=== PATIENT | male | born 1980 | race Caucasian/White ===

== ENCOUNTER 2017-01-12 14:57 | Emergency (ER) | payer SELFPAY ==
[~2017-01-12] VITALS: Ht 170.2 cm; Wt 98.0 kg
[~2017-01-12 14:57] MED LIST: ACET2SOL RIGHT EAR; ASPI325T PO; CIPR500T4 PO; HYDR-3533 PO; PRED20 PO
[2017-01-12 15:00] VITALS: BP 144/106; PULSE 106; RESP 15; TEMP 98.5; O2SAT 97
[2017-01-12] MEDS ORDERED: ASPI1TAB69 PO (15:24)
--- NOTE | 2017-01-12 16:11 | PD ---
HPI Chief Complaint: Skin Problem Time Seen by Provider: 16:11 Travel History International Travel<30 days: No Contact w/Intl Traveler<30days: No Traveled to known affect area: No History of Present Illness HPI 36-year-old male presents to the ED for evaluation for a history of bruising and rash of the left knee. Patient states he woke up 4 days ago and had a deep purple bruise over the anterior aspect of the left knee. He states that over the last 3 days this has become a reddened, mildly itchy rash. He denies trauma to the area, known insect bite. He denies numbness, tingling, weakness, limitations to range of motion of the extremity. He denies fever or chills. No treatment attempted at home. Patient states his tetanus immunization is up- to-date PFSH Past Medical History Anxiety: Yes Cardiovascular Problems: Yes (ME WITH STENT PLACED) Chest Pain: Yes Coronary Artery Disease: Yes Diminished Hearing: No Headaches: Yes Hypertension: Yes Respiratory: Yes (HX PNEUMONIA) Immunizations Current: No Myocardial Infarction: Yes ?: Not Past Surgical History Abdominal Surgery: Yes (Pyloric stenosis repair as child, HERNIORRHAPHY) Coronary Stent: Yes Other Surgery: Yes (Plastic sx to face S/P dog bite & hand SX) Social History Alcohol Use: Yes (Occ.) Tobacco Use: Yes (<1PPD) Substance Use: Yes (Amphetamines "off and on" ) Allergies-Medications (Allergen,Severity, Reaction): Coded Allergies: Codeine (Verified Allergy, Severe, Hives, 01/12/17) [place] (Verified Allergy, Severe, HIVES, 01/12/17) Reported Meds & Prescriptions Reported Meds & Active Scripts Active Triamcinolone Topical (Triamcinolone Acetonide) 0.1% Cream 1 Applic TOPICAL ONCE 10 Days Keflex (Cephalexin) 250 Mg Cap 250 Mg PO Q6H 10 Days Bactrim DS (Sulfamethoxazole-Trimethoprim) 800-160 Mg Tab 1 Tab PO BID Reported Aspirin 81 Mg Tabdr 81 Mg PO DAILY Review of Systems Except as stated in HPI: all other systems reviewed are Neg Physical Exam Narrative GENERAL: Well-nourished, well-developed white male in no acute distress. SKIN: Warm and dry. There is a scattered, patchy, erythematous rash on the anterior aspect of the left tibia, just distal to the knee joint. No pustules, vesicles, crusts are noted. No warmth, tenderness. No popliteal lymphadenopathy. HEAD: Normocephalic. EYES: No scleral icterus. No injection or drainage. NECK: Supple, trachea midline. No JVD or lymphadenopathy. CARDIOVASCULAR: Regular rate and rhythm without murmurs, gallops, or rubs. RESPIRATORY: Breath sounds equal bilaterally. No accessory muscle use. GASTROINTESTINAL: Abdomen soft, non-tender, nondistended. MUSCULOSKELETAL: No cyanosis, or edema. BACK: Nontender without obvious deformity. No CVA tenderness. Data Data Last Documented VS Vital Signs Date Time Temp Pulse Resp B/P Pulse Ox O2 Delivery O2 Flow Rate FiO2 01/12/17 15:00 98.5 106 15 144/106 97 MDM Medical Decision Making Medical Screen Exam Complete: Yes Emergency Medical Condition: Yes Differential Diagnosis Contact dermatitis versus psoriasis versus erythema nodosum versus cellulitis versus other Narrative Course 36-year-old male presents to the ED for evaluation for a history of bruising and rash of the left knee. Patient states he woke up 4 days ago and had a deep purple bruise over the anterior aspect of the left knee. He states that over the last 3 days this has become a reddened, mildly itchy rash. He denies trauma to the area, known insect bite. He denies numbness, tingling, weakness, limitations to range of motion of the extremity. He denies fever or chills. No treatment attempted at home. Patient states his tetanus immunization is up- to-date. Vitals reviewed. Physical exam reveals a patchy, erythematous rash with a central clearing on the anterior aspect of the left tibia, just distal to the knee joint. No pustules, vesicles, crusts are noted. No warmth, tenderness. No popliteal lymphadenopathy. No limitations to ROM. Unsure if this is a skin infection or a contact dermatitis of some sort. Patient was prescribed Bactrim and Keflex as well as triamcinolone ointment. He is instructed to return to the ED in 24-48 hours should his symptoms worsen. Otherwise follow up with the primary care provider. He indicated understanding of the instructions and is amenable to plan of care. Stable and discharged home. Diagnosis Primary Impression: Rash/skin eruption Referrals: Primary Care Physician Patient Instructions: Acute Rash (ED), General Instructions Additional Instructions: Keep the area clean and dry. Applied topical cortisone steroids to 4 times a day 10 days. Antibiotics as prescribed, even if symptoms resolve. Follow up with the primary care provider this week. Return to the ED for worsening of symptoms or any urgent or emergent medical condition. Med/Other Pt SpecificInfo: Prescription(s) given Scripts Triamcinolone Topical 0.1% Cream1 Applic TOPICAL ONCE 10 Days Ref 0 Prov:Etsher Myers MD 01/12/17 Cephalexin (Keflex)250 Mg [id number] Mg PO Q6H 10 Days Ref 0 Prov:Esther Myers MD 01/12/17 Sulfamethoxazole-Trimethoprim (Bactrim DS)800-160 Mg Tab1 Tab PO BID #14 TAB Ref 0 Prov:Esther Myers MD 01/12/17 Disposition: 01 DISCHARGE HOME Condition: Stable Zonia Valencia Jan 12, 2017 16:11
[2017-01-12] MEDS ORDERED: CEPH-459 PO (16:28)
[2017-01-12] MEDS ORDERED: TRIA.1%T TOPICAL (16:28)
[2017-01-12] MEDS ORDERED: BACT800T5 PO (16:28)
== END 2017-01-12 16:48 | disposition home or self-care (01) ==
LOC: PHEFT 14:57
DX: R21 Rash and other nonspecific skin eruption (principal); I10 Essential (primary) hypertension; F41.9 Anxiety disorder, unspecified; Z79.82 Long term (current) use of aspirin; Z95.818 Presence of other cardiac implants and grafts
CPT/HCPCS: 99282

== ENCOUNTER 2017-05-20 21:15 | Emergency (ER) | payer SELFPAY ==
[2017-05-20 21:15] VITALS: BP 166/100; PULSE 114; RESP 18; TEMP 99; O2SAT 98
[~2017-05-20 21:15] MED LIST changes: -ACET2SOL RIGHT EAR; +ASPI1TAB69 PO; -ASPI325T PO; +BACT800T5 PO; +CEPH-459 PO; -CIPR500T4 PO; -HYDR-3533 PO; -PRED20 PO; +TRIA.1%T TOPICAL
[2017-05-20 21:17] VITALS: BP 166/100; PULSE 114; RESP 18; O2SAT 97
[2017-05-20] MEDS ORDERED: SODIUM CHLORIDE 0.9% FLUSH 10 ML FLUSH IVF PRN (21:45)
[2017-05-20] MEDS ORDERED: ALUMINUM/MAGNESIUM/SIMETH 30 ML CUP PO ONE (21:45)
[2017-05-20] MEDS ORDERED: LIDOCAINE VISCOUS 2% SOLN 15 ML UDC PO ONE (21:45)
[2017-05-20] MEDS ORDERED: SODIUM CHLOR 0.9% 1000 ML INJ 1,000 ML IV ONE (21:45)
[2017-05-20] MEDS: NITROGLYCERIN 0.4 MG SL 25 TABS/BTL SL SCH ×3 (21:48→21:56)
--- NOTE | 2017-05-20 21:48 | PD ---
HPI Chief Complaint: Chest Pain Time Seen by Provider: 21:25 Travel History International Travel<30 days: No Contact w/Intl Traveler<30days: No History of Present Illness HPI 36-year-old male with a history of coronary artery disease 5 years ago evidently with a 100% LAD occlusion arrives due to chest pain. He has tingling in the hand on the left side. Symptoms started as anterior neck pain which started when the patient inhaled a cigarette. He had been working on his car. It began about 5 hours ago. He denies a history of diabetes, hypertension hyperlipidemia. He smokes tobacco. He reports 2 grandparents with coronary artery disease. PFSH Past Medical History Anxiety: Yes Cardiovascular Problems: Yes (GA WITH STENT PLACED) Chest Pain: Yes Coronary Artery Disease: Yes Diminished Hearing: No Headaches: Yes Hypertension: Yes Respiratory: Yes (HX PNEUMONIA) Immunizations Current: No Myocardial Infarction: Yes Past Surgical History Abdominal Surgery: Yes (Pyloric stenosis repair as child, HERNIORRHAPHY) Coronary Stent: Yes Other Surgery: Yes (Plastic sx to face S/P dog bite & hand SX) Social History Alcohol Use: Yes (Occ.) Tobacco Use: Yes (<1PPD) Substance Use: Yes (Amphetamines "off and on" ) Allergies-Medications (Allergen,Severity, Reaction): Coded Allergies: Codeine (Verified Allergy, Severe, Hives, 01/12/17) [place] (Verified Allergy, Severe, HIVES, 01/12/17) Reported Meds & Prescriptions Reported Meds & Active Scripts Active Reported Aspirin 325 Mg Tab 325 Mg PO DAILY Review of Systems Except as stated in HPI: all other systems reviewed are Neg General / Constitutional: No: Fever, Chills Cardiovascular: Positive: Chest Pain or Discomfort, Palpitations Respiratory: No: Cough Physical Exam Narrative GENERAL: 36-year-old male well-nourished well-developed no acute distress SKIN: Focused skin assessment warm/dry. HEAD: Atraumatic. Normocephalic. EYES: Pupils equal and round. No scleral icterus. No injection or drainage. ENT: No nasal bleeding or discharge. Mucous membranes pink and moist. NECK: Trachea midline. No JVD. CARDIOVASCULAR: Tachycardia. Regular rhythm. RESPIRATORY: No accessory muscle use. Clear to auscultation. Breath sounds equal bilaterally. GASTROINTESTINAL: Abdomen soft, non-tender, nondistended. Hepatic and splenic margins not palpable. MUSCULOSKELETAL: No obvious deformities. No clubbing. No cyanosis. No edema. NEUROLOGICAL: Awake and alert. No obvious cranial nerve deficits. Motor grossly within normal limits. Normal speech. PSYCHIATRIC: Appropriate mood and affect; insight and judgment normal. Data Data Last Documented VS Vital Signs Date Time Temp Pulse Resp B/P Pulse Ox O2 Delivery O2 Flow Rate FiO2 05/20/17 23:40 95 18 129/88 97 Room Air 05/20/17 21:15 99.0 Orders Electrocardiogram (05/20/17 21:33) Basic Metabolic Panel (Bmp) (05/20/17 21:33) Ckmb (Isoenzyme) Profile (05/20/17 21:33) Complete Blood Count With Diff (05/20/17 21:) D-Dimer (05/20/17 21:33) Magnesium (Mg) (05/20/17 21:33) Prothrombin Time / Inr (Pt) (05/20/17 21:33) Act Partial Throm Time (Ptt) (05/20/17 21:33) Troponin I (05/20/17 21:33) Chest, Single Ap (05/20/17 21:33) Ecg Monitoring (05/20/17 21:33) Iv Access Insert/Monitor (05/20/17 21:33) Oximetry (05/20/17 21:33) Oxygen Administration (05/20/17 21:33) Sodium Chloride 0.9% Flush (Ns Flush) (05/20/17 21:45) Nitroglycerin Sl (Nitrostat Sl) (05/20/17 21:45) Al-Mag Hy-Si 40-40-4 Mg/Ml Liq (Mag-Al P (05/20/17 21:45) Lidocaine 2% Viscous (Xylocaine 2% Visco (05/20/17 21:45) Sodium Chlor 0.9% 1000 Ml Inj (Ns 1000 M (05/20/17 21:45) CKMB (05/20/17 21:25) CKMB% (05/20/17 21:25) Lorazepam Inj (Ativan Inj) (05/20/17 22:30) Troponin I (05/20/17 23:33) Electrocardiogram (05/20/17 ) Labs Laboratory Tests Test 05/20/17 05/20/17 21:25 23:30 White Blood Count 14.6 TH/MM3 Red Blood Count 5.32 MIL/MM3 Hemoglobin 16.1 GM/DL Hematocrit 48.8 % Mean Corpuscular Volume 91.7 FL Mean Corpuscular Hemoglobin 30.2 PG Mean Corpuscular Hemoglobin 33.0 % Concent Red Cell Distribution Width 13.4 % Platelet Count 427 TH/MM3 Mean Platelet Volume 7.9 FL Neutrophils (%) (Auto) 67.1 % Lymphocytes (%) (Auto) 24.5 % Monocytes (%) (Auto) 7.2 % Eosinophils (%) (Auto) 0.4 % Basophils (%) (Auto) 0.8 % Neutrophils # (Auto) 9.7 TH/MM3 Lymphocytes # (Auto) 3.6 TH/MM3 Monocytes # (Auto) 1.1 TH/MM3 Eosinophils # (Auto) 0.1 TH/MM3 Basophils # (Auto) 0.1 TH/MM3 CBC Comment DIFF FINAL Differential Comment Prothrombin Time 10.7 SEC Prothromb Time International 1.0 RATIO Ratio Activated Partial 27.7 SEC Thromboplast Time D-Dimer Quantitative (PE/DVT) 0.30 MG/L FEU Sodium Level 142 MEQ/L Potassium Level 3.4 MEQ/L Chloride Level 105 MEQ/L Carbon Dioxide Level 28.7 MEQ/L Anion Gap 8 MEQ/L Blood Urea Nitrogen 16 MG/DL Creatinine 1.20 MG/DL Estimat Glomerular Filtration 69 ML/MIN Rate Random Glucose 137 MG/DL Calcium Level 9.5 MG/DL Magnesium Level 2.1 MG/DL Total Creatine Kinase 107 U/L Creatine Kinase MB 1.2 NG/ML Troponin I LESS THAN 0.02 LESS THAN 0.02 NG/ML NG/ML MDM Medical Decision Making Medical Screen Exam Complete: Yes Emergency Medical Condition: Yes Medical Record Reviewed: Yes Differential Diagnosis NSTEMI, unstable angina, coronary vasospasm, PE, PTX, aortic dissection, pericarditis, myocarditis, endocarditis, PNA, esophageal disease, aneurysm, musculoskeletal etiologies, anxiety, cocaine/sympathomimetic abuse Narrative Course CBC & BMP Diagram 05/20/17 21:25 DDimer 0.30 PT 10.7 INR 1.0 EKG revealed a sinus tachycardia with a rate of 113 Last 24 hours Impressions Chest X-Ray 05/20/17 3853 Signed Impressions: Service Date/Time: Saturday, May 20, 2017 22:25 - CONCLUSION: Normal examination. Aryan Arrington MD Patient reports persistent right anterior neck pain. He was reassessed at about 10:10 PM. At that time spasming about the region of the right sternocleidomastoid musculature with tenderness. The patient reiterated some anxiety type symptoms and a dose of Ativan was ordered, ideally managing both anxiety and the muscle spasm activity. We will perform a repeat troponin at 2 hours and reassessed the patient. Repeat troponin is undetectable the patient' s ready for discharge. Diagnosis Primary Impression: Neck pain Referrals: Primary Care Physician 2 days Additional Instructions: You have a choice when it comes to health care, and we are glad that you chose [facility]. Hopefully, we have met your expectations on today's visit. You are welcome to return to [facility] at any time, as we are committed to meeting the health care needs of our community. Med/Other Pt SpecificInfo: No Change to Meds Disposition: 01 DISCHARGE HOME Condition: Stable Navarro Davis MD May 20, 2017 21:47
[2017-05-20 21:49] LABS: AUTOMATED NEUTROPHIL # 9.7 TH/MM3 (1.8-7.7); BASOPHIL # 0.1 TH/MM3 (0-0.2); BASOPHIL % 0.8 % (0.0-2.0); EOSINOPHIL # 0.1 TH/MM3 (0-0.4); EOSINOPHIL % 0.4 % (0.0-4.0); HEMATOCRIT 48.8 % (39.0-51.0); HEMO FLAGS DIFF FINAL; LYMPH % 24.5 % (9.0-44.0); LYMPHOCYTE # 3.6 TH/MM3 (1.0-4.8); MEAN CELL VOLUME 91.7 FL (80.0-100.0); MEAN CORPUSCULAR HEMOGLOBIN 30.2 PG (27.0-34.0); MONO % 7.2 % (0.0-8.0); NEUT % 67.1 % (16.0-70.0); PLATELET COUNT 427 TH/MM3 (150-450); RED BLOOD COUNT 5.32 MIL/MM3 (4.50-5.90); RED CELL DISTRIBUTION WIDTH 13.4 % (11.6-17.2); WHITE BLOOD COUNT 14.6 TH/MM3 (4.0-11.0)
[2017-05-20 21:55] VITALS: BP 148/71; PULSE 109; RESP 18; O2SAT 96
[2017-05-20 21:58] LABS: CHLORIDE 105 MEQ/L (98-107); POTASSIUM 3.4 MEQ/L (3.5-5.1); SODIUM (NA) 142 MEQ/L (136-145)
[2017-05-20 22:01] LABS: ANION GAP 8 MEQ/L (5-15); BICARBONATE 28.7 MEQ/L (21.0-32.0); BLOOD UREA NITROGEN 16 MG/DL (7-18); MAGNESIUM 2.1 MG/DL (1.5-2.5)
[2017-05-20] MEDS ORDERED: ASPI325T PO (22:01)
[2017-05-20 22:05] LABS: GLOMERULAR FILTRATION RATE 69 ML/MIN (>89)
[2017-05-20 22:08] LABS: CREATINE KINASE 107 U/L (39-308)
[2017-05-20 22:10] VITALS: BP 142/80; PULSE 97; RESP 18; O2SAT 97
[2017-05-20 22:17] LABS: APTT (PATIENT) 27.7 SEC (24.3-30.1); PROTHROMBIN TIME - PATIENT 10.7 SEC (9.8-11.6)
[2017-05-20 22:20] LABS: CKMB 1.2 NG/ML (0.5-3.6)
[2017-05-20] MEDS ORDERED: LORazepam 2 MG/ML VIAL IV PUSH ONE (22:30)
--- NOTE | 2017-05-20 22:31 | RADRPT ---
EXAM DATE/TIME: 05/20/2017 22:25 [facility] COMPARISON: CHEST SINGLE AP, February 26, 2015, 21:13. INDICATIONS : Chest pain. MEDICAL HISTORY : Myocardial infarction. SURGICAL HISTORY : Coronary artery stent. ENCOUNTER: Initial ACUITY: >1 year PAIN SCORE: 5/10 LOCATION: Bilateral chest FINDINGS: A single view of the chest demonstrates the lungs to be symmetrically aerated without evidence of mas s, infiltrate or effusion. The cardiomediastinal contours are unremarkable. Osseous structures are intact. CONCLUSION: Normal examination. Aryan Arrington MD on May 20, 2017 at 22:29 Board Certified Radiologist. This report was verified electronically.
[2017-05-20 23:40] VITALS: BP 129/88; PULSE 95; RESP 18; O2SAT 97
--- NOTE | 2017-05-21 08:52 | EKG ---
Date Performed: 05/21/2017 Time Performed: 00:03:12 PTAGE: 36 years EKG: Sinus rhythm NONSPECIFIC T-WAVE ABNORMALITY BORDERLINE ECG PREVIOUS TRACING : 05/20/2017 21.25 DOCTOR: Ganga Jordan Interpretating Date/Time 05/21/2017 08:50:53
--- NOTE | 2017-05-21 08:56 | EKG ---
Date Performed: 05/20/2017 Time Performed: 21:25:13 PTAGE: 36 years EKG: SINUS TACHYCARDIA NONSPECIFIC T-WAVE ABNORMALITY ABNORMAL RHYTHM ECG INTERPRETATION BASED O N A DEFAULT AGE OF 40 YEARS NO PREVIOUS TRACING DOCTOR: Ganga Jordan Interpretating Date/Time 05/21/2017 08:56:43
== END 2017-05-21 00:31 | disposition home or self-care (01) ==
LOC: PHED 21:15
DX: M54.2 Cervicalgia (principal); M62.838 Other muscle spasm; F41.9 Anxiety disorder, unspecified; I25.10 Atherosclerotic heart disease of native coronary artery without angina pectoris; F17.210 Nicotine dependence, cigarettes, uncomplicated; I25.2 Old myocardial infarction; Z79.82 Long term (current) use of aspirin
CPT/HCPCS: 71010; 80048; 82550; 82552; 83735; 84484; 85025; 85379; 85610; 85730; 93005; 96361; 96374; 99285; J2060; J7030

== ENCOUNTER 2018-03-31 17:07 | Emergency (ER) | payer SELFPAY ==
[~2018-03-31] VITALS: Ht 170.2 cm; Wt 102.6 kg
[~2018-03-31 17:07] MED LIST changes: +ASPI-183 PO; -ASPI1TAB69 PO; -BACT800T5 PO; -CEPH-459 PO; -TRIA.1%T TOPICAL
[2018-03-31 17:11] VITALS: BP 177/92; PULSE 120; RESP 20; TEMP 97.5; O2SAT 98
[2018-03-31] MEDS ORDERED: BUPIVACAINE HCL PF 0.5% 30 ML VIAL INFIL ONE (18:00)
--- NOTE | 2018-03-31 18:57 | PD ---
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 Patient says that he believes either the metal or the oxygen tubing hit his face but is unsure. He is denies significant pain although he says the area is somewhat painful. He denies any foreign bodies or loosening of his teeth. Denies loss of consciousness or other head trauma. He says that he has had a couple of drinks of alcohol but denies any other medications or drug use. PFSH Past Medical History Anxiety: Yes Cardiovascular Problems: Yes (STENT) Chest Pain: Yes Coronary Artery Disease: Yes Diminished Hearing: No Headaches: Yes Hypertension: Yes Respiratory: Yes (HX PNEUMONIA) Immunizations Current: No Myocardial Infarction: Yes Past Surgical History Abdominal Surgery: Yes (Pyloric stenosis repair as child, HERNIORRHAPHY) Coronary Stent: Yes Other Surgery: Yes (Plastic sx to face S/P dog bite & hand SX) Social History Alcohol Use: Yes (Occ.) Tobacco Use: Yes (<1PPD) Substance Use: Yes (Amphetamines "off and on" ) Allergies-Medications (Allergen,Severity, Reaction): Coded Allergies: codeine (Unverified Allergy, Severe, Hives, 03/31/18) strawberry (Unverified Allergy, Severe, THROAT SWELLS, 03/31/18) Reported Meds & Prescriptions Reported Meds & Active Scripts Active Reported Aspirin 325 Mg Tab 325 Mg PO DAILY Review of Systems Except as stated in HPI: all other systems reviewed are Neg Physical Exam Narrative GENERAL: Well-nourished, well-developed patient, in NAD SKIN: Focused skin assessment warm/dry. No rashes or lesions. HEAD: Normocephalic. Atraumatic. EYES: No scleral icterus. No injection or drainage. PERRLA, EOMI Right upper and lower lip with lacerations, slight oozing of blood THROAT: No pharyngeal injection, exudates, or tonsillar hypertrophy. Airway is patent. NECK: Supple, trachea midline. No JVD or lymphadenopathy. No meningismus. CARDIOVASCULAR: Regular rate and rhythm without murmurs, gallops, or rubs. RESPIRATORY: Breath sounds equal bilaterally. No accessory muscle use. No wheezes, rales, or rhonchi MUSCULOSKELETAL: No cyanosis, or edema. BACK: Nontender without obvious deformity. No CVA tenderness. Data Data Last Documented VS Vital Signs Date Time Temp Pulse Resp B/P (MAP) Pulse Ox O2 Delivery O2 Flow Rate FiO2 03/31/18 17:11 97.5 120 20 177/92 (120) 98 Orders Orders Bupivacaine Pf 0.5% Inj (Marcaine Pf 0.5 (03/31/18 18:00) Ed Discharge Order (03/31/18 18:57) [facility] Medical Decision Making Medical Screen Exam Complete: Yes Emergency Medical Condition: Yes Differential Diagnosis Facial laceration, lip laceration, lip avulsion Narrative Course 37 year male presents emergency department for evaluation of a laceration to his right upper and lower lip. Vital signs are stable. No evidence of any other trauma. Laceration repair completed. Suture removal in approximately 5 days. Advised on wound care. Procedures Procedure Narrative LACERATION LOCATION: Right side upper and lower lips LENGTH: Upper approximately 1-1/2 to NUMBER OF STITCHES/MILES: Lower 1 cm REPAIR: The area of the laceration was prepped with Betadine and sterilely draped. A submental and infraorbital block was performed with 0.5% bupivacaine to anesthetize the areas. The wound was copiously irrigated and explored without evidence of foreign body , tendon injury or neurovascular injury. The wound was closed using 6-0 Prolene. This was a single layer repair. The patient was advised to keep the dressing clean and dry. Patient tolerated the procedure well. Diagnosis Primary Impression: Facial laceration Qualified Codes: S01.81XA - Laceration without foreign body of other part of head, initial encounter Referrals: Primary Care Physician Additional Instructions: Suture removal in 5 days. Keep area clean and dry. You may shower however, dry the area thoroughly. Disposition: 01 DISCHARGE HOME Condition: Stable Bindu Roldan March 31, 2018 18:57
== END 2018-03-31 19:07 | disposition home or self-care (01) ==
LOC: PHEFT 17:07
DX: S01.511A Laceration without foreign body of lip, initial encounter (principal); F17.200 Nicotine dependence, unspecified, uncomplicated; F15.90 Other stimulant use, unspecified, uncomplicated; F41.9 Anxiety disorder, unspecified; I25.10 Atherosclerotic heart disease of native coronary artery without angina pectoris; I10 Essential (primary) hypertension; I25.2 Old myocardial infarction; W22.8XXA Striking against or struck by other objects, initial encounter; Y93.89 Activity, other specified
CPT/HCPCS: 12011

== ENCOUNTER 2018-04-05 09:03 | Emergency (ER) | payer SELFPAY ==
[~2018-04-05] VITALS: Ht 170.2 cm; Wt 102.0 kg
[2018-04-05 09:05] VITALS: BP 183/122; PULSE 105; RESP 16; TEMP 98.6; O2SAT 98
--- NOTE | 2018-04-05 09:23 | PD ---
HPI Chief Complaint: Wound/Suture/Staple Re-Check Time Seen by Provider: 09:13 Travel History International Travel<30 days: No Contact w/Intl Traveler<30days: No Traveled to known affect area: No History of Present Illness HPI 37y male presents to the ED for suture removal from his lip. Says he has had no issues with his wounds except some mild burning with spicy foods. Denies fevers or chills. Has no other complaints today. PFSH Past Medical History Anxiety: Yes Cardiovascular Problems: Yes (STENT) Chest Pain: Yes Coronary Artery Disease: Yes Diminished Hearing: No Headaches: Yes Hypertension: Yes Respiratory: Yes (HX PNEUMONIA) Immunizations Current: No Myocardial Infarction: Yes Past Surgical History Abdominal Surgery: Yes (Pyloric stenosis repair as child, HERNIORRHAPHY) Coronary Stent: Yes Other Surgery: Yes (Plastic sx to face S/P dog bite & hand SX) Social History Alcohol Use: Yes (Occ.) Tobacco Use: Yes (<1PPD) Substance Use: Yes (Amphetamines "off and on" ) Allergies-Medications (Allergen,Severity, Reaction): Coded Allergies: codeine (Unverified Allergy, Severe, Hives, 04/05/18) strawberry (Unverified Allergy, Severe, THROAT SWELLS, 04/05/18) Reported Meds & Prescriptions Reported Meds & Active Scripts Active Reported Aspirin 325 Mg Tab 325 Mg PO DAILY Review of Systems Except as stated in HPI: all other systems reviewed are Neg Physical Exam Narrative GENERAL: Well-nourished, well-developed patient, in NAD SKIN: Focused skin assessment warm/dry. No rashes or lesions. HEAD: Normocephalic. Atraumatic. EYES: No scleral icterus. No injection or drainage. PERRLA, EOMI THROAT: No pharyngeal injection, exudates, or tonsillar hypertrophy. Airway is patent. NECK: Supple, trachea midline. No JVD. No meningismus. MUSCULOSKELETAL: No cyanosis, or edema. BACK: Nontender without obvious deformity. No CVA tenderness. Data Data Last Documented VS Vital Signs Date Time Temp Pulse Resp B/P (MAP) Pulse Ox O2 Delivery O2 Flow Rate FiO2 04/05/18 09:05 98.6 105 16 183/122 (142) 98 MDM Medical Decision Making Medical Screen Exam Complete: Yes Emergency Medical Condition: Yes Differential Diagnosis Suture removal, cellulitis, erysipelas Narrative Course 37-year-old male presents emergency department for evaluation and suture removal from the lips. Vital signs are stable. Suture removal removed without any issues. No dehiscence of the wound. No exudate. Advised on wound care. Return for Diagnosis Primary Impression: Encounter for removal of sutures Referrals: Primary Care Physician Patient Instructions: Acute Wound Care (GEN), General Instructions Additional Instructions: Keep area clean as you are still healing. Disposition: 01 DISCHARGE HOME Condition: Stable Bindu Roldan Apr 05, 2018 09:23
[2018-04-05 09:25] VITALS: BP 160/111
== END 2018-04-05 09:31 | disposition home or self-care (01) ==
LOC: PHEFT 09:03
DX: Z48.02 Encounter for removal of sutures (principal); F41.9 Anxiety disorder, unspecified; I25.10 Atherosclerotic heart disease of native coronary artery without angina pectoris; I10 Essential (primary) hypertension; I25.2 Old myocardial infarction; F17.200 Nicotine dependence, unspecified, uncomplicated; F15.90 Other stimulant use, unspecified, uncomplicated; Z88.5 Allergy status to narcotic agent; Z79.82 Long term (current) use of aspirin
CPT/HCPCS: 99281